=== PATIENT | male | born 1980 | race Two or more races ===

== ENCOUNTER 2020-06-26 14:27 | Emergency (ER) | payer OTHER ==
[~2020-06-26] VITALS: Ht 180.3 cm; Wt 84.0 kg
[2020-06-26 15:29] LABS: BASO % 0 % (0-3); EOS % 0 % (0-3); HEMATOCRIT 43.8 % (39.0-53.0); HEMOGLOBIN 14.7 g/dL (13.0-17.5); LYMPH # 0.5 x10^3/uL (1.0-4.8); LYMPH % 4 % (24-48); MEAN CORPUSCULAR HEMOGLOBIN 32 pg (25-35); MEAN CORPUSCULAR HGB CONC 34 g/dL (31-37); MEAN CORPUSCULAR VOLUME 94 fL (79-100); MONO # 0.3 x10^3/uL (0.0-1.1); MONO % 2 % (0-9); NEUT # 11.2 x10^3/uL (1.8-7.7); NEUT % 93 % (31-73); PLATELET COUNT 238 x10^3/uL (140-400); RED BLOOD COUNT 4.67 x10^6/uL (4.30-5.70); RED CELL DISTRIBUTION WIDTH 13.8 % (11.5-14.5)
[2020-06-26 15:30] LABS: BILIRUBIN,URINE NEGATIVE (NEG); CLARITY,URINE CLEAR; COLOR,URINE YELLOW; NITRITE,URINE NEGATIVE (NEG); PROTEIN,URINE NEGATIVE (NEG-TRACE); UROBILINOGEN,URINE 0.2 mg/dL (0.2 mg/dL)
[2020-06-26] MEDS ORDERED: KETOROLAC 30 MG/ML VIAL. IV ONE (15:30)
[2020-06-26] MEDS ORDERED: IV NORMAL SALINE 1000ML BAG 1,000 ML IV ONE (15:30)
[2020-06-26] MEDS ORDERED: ONDANSETRON PF 4 MG/2 ML VIAL. IV ONE (15:30)
[2020-06-26 15:44] LABS: BACTERIA,URINE 0 /HPF (0-FEW); RBC,URINE >40 /HPF (0-2); WBC,URINE 0 /HPF (0-4)
[2020-06-26 16:04] LABS: % BANDS 5 % (0-9); % LYMPHS 4 % (24-48); % MONOS 1 % (0-10); % SEGS 90 % (35-66); PLT ESTIMATE ADEQUATE (ADEQUATE)
[2020-06-26 16:16] LABS: ALBUMIN 4.3 g/dL (3.4-5.0); ALBUMIN/GLOBULIN RATIO 1.4 (1.0-1.7); CALCIUM 8.5 mg/dL (8.5-10.1); CREATININE 1.3 mg/dL (0.7-1.3); GFR 60.8; MAGNESIUM 1.9 mg/dL (1.8-2.4); POTASSIUM 3.8 mmol/L (3.5-5.1); TOTAL BILIRUBIN 0.6 mg/dL (0.2-1.0); TOTAL PROTEIN 7.4 g/dL (6.4-8.2)
--- NOTE | 2020-06-26 17:02 | RAD ---
EXAM: Abdomen and pelvis CT without intravenous contrast. HISTORY: Left flank pain. Hematuria. TECHNIQUE: Computed tomographic images of the abdomen and pelvis were obtained without contrast. Mult iplanar reformatting was performed. *One or more of the following individualized dose reduction techniques were utilized for this examina tion: 1. Automated exposure control. 2. Adjustment of the mA and/or kV according to patient size. 3. Use of iterative reconstruction technique. COMPARISON: None. FINDINGS: Evaluation of the lower thorax is unremarkable. No hepatic lesion is seen on this noncontra st exam. The gallbladder, spleen, stomach, pancreas and adrenal glands are unremarkable. There is mild left hydronephrosis and hydroureter extending to an obstructing 4 mm stone within the p roximal ureter. There is associated perinephric and periureteral stranding due to obstructive uropath y. There are additional nonobstructing left renal stones measuring up to 4 mm. No right renal or uret eral stone is seen. There is bladder wall thickening likely due to relative under distention. There is no appendicitis. There is no bowel obstruction. There is no abnormal bowel wall thickening. The aorta is normal in caliber. There is no lymphadenopathy. There is no suspicious osseous lesion. T here is grade 1 anterolisthesis with associated pars interarticularis defects and advanced degenerati ve changes L5-S1. There is associated bilateral foraminal stenosis at this level. IMPRESSION: 1. Mild left hydronephrosis secondary to an obstructing 4 mm stone within the proximal ureter. There are additional nonobstructing left renal stones. 2. Grade 1 anterolisthesis with associated pars defects and advanced degenerative change at L5-S1, re sulting in bilateral foraminal stenosis. Electronically signed by: Donna Dooley MD (06/26/2020 5:00 PM) [email or web address]
[2020-06-26] MEDS ORDERED: ONDA4TAB12 PO (17:39)
[2020-06-26] MEDS ORDERED: HYDR-2761 PO (17:39)
[2020-06-26] MEDS ORDERED: TAMS0.4C97 PO (17:39)
--- NOTE | 2020-06-26 17:42 | ED.ADGEN ---
Past Medical History Past Medical History: Kidney Stone Past Surgical History: Other Additional Past Surgical Histo: BILAT KNEE Smoking Status: Never Smoker Alcohol Use: None General Adult EDM: Chief Complaint: ABDOMINAL PAIN HPI: HPI: Patient is a 39 year old male, accompanied by his , who presents emergency department with complaints of 3 episodes of vomiting, and left flank pain that began today. Patient reports a history of kidney stones, he states that this is similar to his previous pain experience with kidney stones. He denies any hematuria, increased urinary frequency, difficulty voiding, or dysuria. Patient denies any fever, cough, body aches, diarrhea, chest pain, palpitations, shortness of breath, or rash. Patient states that the pain has been fluctuating between sharp and dull. He currently rates pain a 9 on 10 on the pain scale, he denies any alleviating or exacerbating factors. Review of Systems: Review of Systems: Complete ROS is negative unless otherwise noted in HPI. Current Medications: Current Medications Medications (Trade) Dose Ordered Sig/Nghia Start Time Stop Time Status Last Admin Dose Admin Ketorolac Tromethamine (Toradol 30mg Vial) 30 mg 1X ONCE 06/26/20 15:30 06/26/20 15:44 DC 06/26/20 15:47 30 MG Ondansetron HCl (Zofran) 4 mg 1X ONCE 06/26/20 15:30 06/26/20 15:44 DC 06/26/20 15:50 4 MG Sodium Chloride 1,000 ml @ 1,000 mls/hr 1X ONCE 06/26/20 15:30 06/26/20 16:29 DC 06/26/20 15:47 1,000 MLS/HR Allergies: Allergies: Allergies Coded Allergies Type Severity Reaction Last Updated Verified No Known Drug Allergies 06/26/20 No Physical Exam: PE: See Above Constitutional: Well developed, well nourished, no acute distress, non-toxic appearance, appears uncomfortable. [] HENT: Normocephalic, atraumatic, bilateral external ears normal, nose normal. [] Eyes: PERRLA, EOMI, conjunctiva normal, no discharge. [] Neck: Normal range of motion, no stridor. [] Cardiovascular:Heart rate regular rhythm Lungs & Thorax: Respirations even and unlabored, no retractions, no respiratory distress Abdomen: soft, no tenderness, no palpable mass, no pulsatile mass Back: Nontender, no CVA tenderness Skin: Warm, dry, no erythema, no rash. [] Extremities: No cyanosis, ROM intact, no edema. [] Neurologic: Alert and oriented X 3, normal motor, normal sensory, no focal deficits noted. [] Psychologic: Affect normal, judgement normal, mood normal. [] Current Patient Data: Labs: Laboratory Tests Test 06/26/20 15:10 White Blood Count 12.0 x10^3/uL (4.0-11.0) H Red Blood Count 4.67 x10^6/uL (4.30-5.70) Hemoglobin 14.7 g/dL (13.0-17.5) Hematocrit 43.8 % (39.0-53.0) Mean Corpuscular Volume 94 fL (79-100) Mean Corpuscular Hemoglobin 32 pg (25-35) Mean Corpuscular Hemoglobin Concent 34 g/dL (31-37) Red Cell Distribution Width 13.8 % (11.5-14.5) Platelet Count 238 x10^3/uL (140-400) Neutrophils (%) (Auto) 93 % (31-73) H Lymphocytes (%) (Auto) 4 % (24-48) L Monocytes (%) (Auto) 2 % (0-9) Eosinophils (%) (Auto) 0 % (0-3) Basophils (%) (Auto) 0 % (0-3) Neutrophils # (Auto) 11.2 x10^3/uL (1.8-7.7) H Lymphocytes # (Auto) 0.5 x10^3/uL (1.0-4.8) L Monocytes # (Auto) 0.3 x10^3/uL (0.0-1.1) Eosinophils # (Auto) 0.0 x10^3/uL (0.0-0.7) Basophils # (Auto) 0.0 x10^3/uL (0.0-0.2) Segmented Neutrophils % 90 % (35-66) H Band Neutrophils % 5 % (0-9) Lymphocytes % 4 % (24-48) L Monocytes % 1 % (0-10) Platelet Estimate Adequate (ADEQUATE) Urine Collection Type Unknown Urine Color Yellow Urine Clarity Clear Urine pH 6.0 (<5.0-8.0) Urine Specific Albright 1.015 (1.000-1.030) Urine Protein Negative mg/dL (NEG-TRACE) Urine Glucose (UA) 100 mg/dL (NEG) Urine Ketones (Stick) >=80 mg/dL (NEG) Urine Blood Moderate (NEG) Urine Nitrite Negative (NEG) Urine Bilirubin Negative (NEG) Urine Urobilinogen Dipstick 0.2 mg/dL (0.2 mg/dL) Urine Leukocyte Esterase Negative (NEG) Urine RBC >40 /HPF (0-2) Urine WBC 0 /HPF (0-4) Urine Bacteria 0 /HPF (0-FEW) Sodium Level 141 mmol/L (136-145) Potassium Level 3.8 mmol/L (3.5-5.1) Chloride Level 102 mmol/L (98-107) Carbon Dioxide Level 26 mmol/L (21-32) Anion Gap 13 (6-14) Blood Urea Nitrogen 14 mg/dL (8-26) Creatinine 1.3 mg/dL (0.7-1.3) Estimated GFR (Cockcroft-Gault) 60.8 BUN/Creatinine Ratio 11 (6-20) Glucose Level 144 mg/dL (70-99) H Calcium Level 8.5 mg/dL (8.5-10.1) Magnesium Level 1.9 mg/dL (1.8-2.4) Total Bilirubin 0.6 mg/dL (0.2-1.0) Aspartate Amino Transferase (AST) 30 U/L (15-37) Alanine Aminotransferase (ALT) 33 U/L (16-63) Alkaline Phosphatase 61 U/L (46-116) Total Protein 7.4 g/dL (6.4-8.2) Albumin 4.3 g/dL (3.4-5.0) Albumin/Globulin Ratio 1.4 (1.0-1.7) Lipase 58 U/L (73-393) L Laboratory Tests 06/26/20 15:10 Laboratory Tests 06/26/20 15:10 Vital Signs: Vital Signs Date Time Temp Pulse Resp B/P (MAP) Pulse Ox O2 Delivery O2 Flow Rate FiO2 06/26/20 15:15 98.5 52 20 135/86 (102) 99 Room Air 98.5 EKG: EKG: [] Heart Score: C/O Chest Pain: No Risk Scores: Score 0 - 3: 2.5% MACE over next 6 weeks - Discharge Home Score 4 - 6: 20.3% MACE over next 6 weeks - Admit for Clinical Observation Score 7 - 10: 72.7% MACE over next 6 weeks - Early Invasive Strategies Radiology/Procedures: Radiology/Procedures: PROCEDURE: CT ABDOMEN PELVIS WO CONTRAST EXAM: Abdomen and pelvis CT without intravenous contrast. HISTORY: Left flank pain. Hematuria. TECHNIQUE: Computed tomographic images of the abdomen and pelvis were obtained without contrast. Multiplanar reformatting was performed. *One or more of the following individualized dose reduction techniques were utilized for this examination: 1. Automated exposure control. 2. Adjustment of the mA and/or kV according to patient size. 3. Use of iterative reconstruction technique. COMPARISON: None. FINDINGS: Evaluation of the lower thorax is unremarkable. No hepatic lesion is seen on this noncontrast exam. The gallbladder, spleen, stomach, pancreas and adrenal glands are unremarkable. There is mild left hydronephrosis and hydroureter extending to an obstructing 4 mm stone within the proximal ureter. There is associated perinephric and periureteral stranding due to obstructive uropathy. There are additional nonobstructing left renal stones measuring up to 4 mm. No right renal or ureteral stone is seen. There is bladder wall thickening likely due to relative under distention. There is no appendicitis. There is no bowel obstruction. There is no abnormal bowel wall thickening. The aorta is normal in caliber. There is no lymphadenopathy. There is no suspicious osseous lesion. There is grade 1 anterolisthesis with associated pars interarticularis defects and advanced degenerative changes L5-S1. There is associated bilateral foraminal stenosis at this level. IMPRESSION: 1. Mild left hydronephrosis secondary to an obstructing 4 mm stone within the proximal ureter. There are additional nonobstructing left renal stones. 2. Grade 1 anterolisthesis with associated pars defects and advanced degenerative change at L5-S1, resulting in bilateral foraminal stenosis. Electronically signed by: Donna Dooley MD (06/26/2020 5:00 PM) [email or web address] [] Course & Med Decision Making: Course & Med Decision Making Pertinent Labs and Imaging studies reviewed. (See chart for details) 39-year-old male presented emergency department with complaints of nausea, vomiting, and left flank pain that began today. Work-up included labs and CT scan. The patient was given a liter normal saline, 4 mg of Zofran, and 30 mg of IV Toradol. He reported relief of his pain and nausea after these medications. CBC revealed a mildly elevated white blood cell count of 12.0, otherwise unremarkable; CMP revealed elevated blood glucose of 144; UA revealed moderate amount of blood with greater than 40 red blood cells and no bacteria. CT of the abdomen pelvis: IMPRESSION: 1. Mild left hydronephrosis secondary to an obstructing 4 mm stone within the proximal ureter. There are additional nonobstructing left renal stones. 2. Grade 1 anterolisthesis with associated pars defects and advanced degenerative change at L5-S1, resulting in bilateral foraminal stenosis. I discussed these results with the patient. Patient stated he felt okay to go home. Advised the patient that I will prescribe hydrocodone, Flomax, and Zofran. I instructed the patient to increase lots of fluids. I recommended that he follow-up with a facility that has urology on staff if his symptoms worsen, he develops a fever, or cannot urinate. Otherwise I instructed the patient to follow-up with his urologist in the next 1 to 2 days for reevaluation. Patient was instructed to strain all of his urine until stone had passed, collect the stone and take it with him to the urologist. Patient verbalized an understanding of home care, medications, follow-up, and r eturn to ED instructions and was in agreement with the plan of care. [] Trell Disclaimer: Trell Disclaimer: This electronic medical record was generated, in whole or in part, using a voice recognition dictation system. Departure Departure Impression: Primary Impression: Urinary tract obstruction due to kidney stone Additional Impression: Kidney stone on left side Disposition: 01 DC HOME SELF CARE/HOMELESS Condition: STABLE Referrals: NO PCP (PCP) Patient Instructions: Diet for Kidney Stones, Kidney Stones, [id number] Additional Instructions: Fill the prescriptions use them as directed, increase clear fluids. Use the strainer provided to strain all of your urine, if you are able to collect the stone take it with you to the urologist for further evaluation. Follow-up with your urologist in the next 1 to 2 days, return to the ER if your symptoms worsen, your pain is not controlled, or you develop a fever. Scripts Ondansetron (ONDANSETRON ODT) 4 Mg Tab.rapdis 1 TAB PO PRN Q6-8HRS PRN for NAUSEA/VOMITING for 4 Days, #16 TAB 0 Refills Prov: ALVA ZALDIVAR APRN 06/26/20 Hydrocodone Bit/Acetaminophen (HYDROCODONE-APAP 5-325 ) 1 Tab Tablet 1 TAB PO PRN Q6HRS PRN for PAIN for 5 Days, #20 TAB 0 Refills Prov: ALVA ZALDIVAR APRN 06/26/20 Tamsulosin Hcl (FLOMAX) 0.4 Mg Cap.er.24h 1 CAP PO DAILY for 14 Days, #14 CAP 0 Refills Prov: ALVA ZALDIVAR APRN 06/26/20 Problem Qualifiers ALVA ZALDIVAR APRN Jun 26, 2020 17:42
[2020-06-26 17:53] VITALS: BP 150/73
== END 2020-06-26 18:00 | disposition home or self-care (01) ==
LOC: ER 14:27
DX: N13.2 Hydronephrosis with renal and ureteral calculous obstruction (principal); N39.0 Urinary tract infection, site not specified; R11.2 Nausea with vomiting, unspecified; R10.9 Unspecified abdominal pain; Z98.890 Other specified postprocedural states; Z87.442 Personal history of urinary calculi
CPT/HCPCS: 36415; 74176; 80053; 81001; 83690; 83735; 85007; 85025; 96361; 96374; 96375; 99285; J1885; J2405; J7030